=== PATIENT | male | born 1950 | race Caucasian/White ===

== ENCOUNTER 2020-05-07 08:30 | Outpatient (CLI) | payer MEDICARE, BC ==
[~2020-05-07] VITALS: Ht 177 cm; Wt 102.0 kg
[2020-05-07] MEDS ORDERED: BAMLANIVIMAB 700 MG in NS 200 ML IV ONE (08:45)
[2020-05-07] MEDS ORDERED: EPINEPHrine INJECTION 1 MG/ML AMP IM PRN (08:45)
[2020-05-07] MEDS ORDERED: diphenhydrAMINE 50 MG/ML INJ (BENADRYL) IV PRN (08:45)
[2020-05-07 08:54] VITALS: BP 140/80
[2020-05-07 10:00] VITALS: BP 133/77
[2020-05-07 10:59] VITALS: BP 125/75
== END 2020-05-07 11:00 ==
LOC: INFUSION 08:30
PROVIDERS: ATTEND Nurse Practitioner Family
DX: U07.1 COVID-19 (principal)